=== PATIENT | male | born 1955 | race African-American/Black ===

== ENCOUNTER 2019-02-25 09:00 | Emergency (ER) | payer BC, MEDICARE, MEDICAID ==
[~2019-02-25] VITALS: Ht 165.1 cm; Wt 63.0 kg
[2019-02-25 09:47] LABS: HEMOGLOBIN. 14.7 g/dL (14.0-18.0); MEAN CORPUSCULAR VOLUME 87.9 fL (80.0-94.0); MEAN PLATELET VOLUME 7.4 fl (7.4-10.4); PLATELET 197 x1000/uL (130-400); RED BLOOD CELL COUNT 4.89 mill/uL (4.7-6.1); RED CELL DISTRIBUTION WIDTH 14.6 % (11.6-14.6)
[2019-02-25 09:54] LABS: CHLORIDE 105 mEq/L (98-107)
[2019-02-25 10:11] LABS: PLATELET ESTIMATE NORMAL
[2019-02-25 10:15] LABS: ETHANOL BLOOD < 10 mg/dL
[2019-02-25 11:04] VITALS: BP 118/73
== END 2019-02-25 11:17 | disposition home or self-care (01) ==
LOC: ER 09:00
DX: G40.909 Epilepsy, unspecified, not intractable, without status epilepticus (principal); Z91.14 Patient's other noncompliance with medication regimen
CPT/HCPCS: 36415; 80320; 99284; G0480